=== PATIENT | male | born 1945 | race Two or more races ===

== ENCOUNTER 2022-04-09 11:59 | Emergency (ER) | payer BC ==
[~2022-04-09] VITALS: Ht 167.6 cm; Wt 68.0 kg
[2022-04-09 12:25] LABS: BASO% 0.3 % (0-3); EOS% 1.3 % (0-8); HEMATOCRIT 42.1 % (39.0-50.0); HEMOGLOBIN 13.3 g/dl (14.0-18.0); IMMATURE GRANULOCYTES 0.3 % (0.0-5.0); LYMPH% 41.6 % (15-41); MEAN CELL VOLUME 97.5 fL CALC (80.0-100.0); MEAN CORPUSCULAR HGB 30.8 pG CALC (26.0-32.0); MEAN CORPUSCULAR HGB CONC 31.6 g/dL CAL (32.0-36.0); MONO% 8.2 % (2-13); NEUT# 2.9 thou/uL (1.82-7.42); NEUT% 48.3 % (42-76); RED BLOOD COUNT 4.32 mill/uL (4.70-6.10); RED CELL DISTRI WIDTH 13.1 % (11.5-15.5)
[2022-04-09 12:28] VITALS: BP 169/85
[2022-04-09 12:31] VITALS: BP 148/75
[2022-04-09 12:40] LABS: ALBUMIN 4.7 g/dL (3.2-5.0); ALKALINE PHOSPHATASE 70 u/l (38-126); ANION GAP 15 (6-22 (CALC)); BILIRUBIN, TOTAL 0.5 mg/dL (0.2-1.3); BUN 10 mg/dL (8-23); BUN/CREATININE RATIO 8 (12-20 (CALC)); CARBON DIOXIDE 21 mmol/l (22-30); CHLORIDE 109 mmol/l (95-108); CREATININE 1.2 mg/dL (0.7-1.3); GFR FOR AFR.AMER. > 60 ML/MIN (>=60 (CALC)); GFR OTHER RACES 59 ML/MIN (>=60 (CALC)); POTASSIUM 3.7 mmol/l (3.5-5.1); SGOT/AST 38 u/l (19-48); SODIUM 141 mmol/l (137-146); TOTAL PROTEIN 8.6 g/dL (6.3-8.2)
[2022-04-09 12:46] VITALS: BP 139/75
[2022-04-09 13:00] VITALS: BP 135/74
[2022-04-09 14:32] VITALS: BP 135/74
[2022-04-09] MEDS ORDERED: VISTARIL 50MG C50 M1 PO (14:34)
[2022-04-09] MEDS ORDERED: MOTRIN400 MG/TAB PO (14:34)
== END 2022-04-09 14:45 | disposition home or self-care (01) | DRG 552 ==
LOC: ED 11:59
PROVIDERS: Family Medicine
DX: M54.50 Low back pain, unspecified (principal); L29.9 Pruritus, unspecified